=== PATIENT | male | born 1945 | race Caucasian/White ===

== ENCOUNTER 2025-02-23 13:20 | Outpatient (RCR) | payer OTHER, SELFPAY | END 2025-02-24 23:59 | disposition home or self-care (01) | LOC: PRC 13:20 | PROVIDERS: PCP Physician Assistant Medical; Visit Provider Physician Assistant Surgical ==

== ENCOUNTER 2025-02-25 12:01 | Outpatient (CLI) | payer OTHER, SELFPAY ==
[2025-02-25] MEDS: Levalbuterol HFA 15 GM INH 4 PUFF IH (11:05)
[2025-02-25] MEDS: Inhaler, Assist Device 1 EACH MC (11:05)
--- NOTE | 2025-03-01 21:19 | W.PFT ---
Date of service: 02/25/25 Time of Service: 09:55 Pulmonary Function Test Result Indications: CARNES Interpretation Spirometry: There is moderate airflow limitation. No significant bronchodilator response. Impression Moderate airflow obstruction Clinical Correlation therefore is recommended.
== END 2025-02-25 12:02 | disposition home or self-care (01) ==
PROVIDERS: PCP Physician Assistant Medical; Visit Provider Student in an Organized Health Care Education/Training Program
DX: R06.00 Dyspnea, unspecified (principal)
CPT/HCPCS: 94060

== ENCOUNTER 2025-03-04 00:52 | Outpatient (CLI) | payer OTHER, SELFPAY ==
--- NOTE | 2025-03-04 07:30 | DI.US_ITS ---
APPROVED REPORT EXAM: Comprehensive 2D, Doppler, and color-flow Echocardiogram Patient Location: Out-Patient Lead Radiation Therapist: Edwin Matute RDCS (AE) Indications: HTN, SOB Other Information Study Quality: Adequate Conclusion Concentric left ventricular hypertrophy. Ejection fraction is 60%. Wall motion is normal Dilated right ventricle. Normal right ventricular systolic function Severely enlarged right atrium. Moderately enlarged left atrium Aortic valve is sclerotic and trileaflet with mild regurgitation Thickened mitral leaflets. Mitral annular calcification. Moderate mitral regurgitation Normal tricuspid valve with moderate regurgitation. Estimated right ventricular systolic pressure is 72 mmHg Ascending aorta measures 3.7 cm Wall motion Left Ventricle The left ventricle is normal size. The left ventricular systolic function is normal. The left ventric ular ejection fraction is within the normal range. Moderate concentric left hypertrophy There is norm al LV segmental wall motion. There is no ventricular septal defect visualized. LVEF is 60%. Right Ventricle Right ventricle is moderately dilated. The right ventricular systolic function is normal. Atria Left atrium is moderately dilated. Right atrium is severely dilated. The interatrial septum is intact with no evidence for an atrial septal defect. Aortic Valve The aortic valve is sclerotic. Aortic valve is trileaflet. There is no aortic valvular stenosis. Mild aortic regurgitation. Mitral Valve Mitral valve leaflets are thickened. mitral annular calcification. No evidence of mitral valve stenos is. Moderate mitral regurgitation. Tricuspid Valve The tricuspid valve is normal in structure. There is no tricuspid valve stenosis. Moderate tricuspid regurgitation. The RVSP is 72.2mmHg. Pulmonic Valve The pulmonary valve is normal in structure. There is no pulmonic valvular stenosis. There is no pulmo haritha valvular regurgitation. Great Vessels The aortic root is normal in size. The ascending aorta is mildly dilated. The IVC is dilated. The IVC collapses <50% with inspiration. Pericardium There is no pericardial effusion. 2D Dimensions IVSD d PLAX 0.78 cm M: 0.6-1.2 Ao Root d 2.65 cm M: 3.1 - 3.7 LVPW d PLAX 0.78 cm M: 0.6 - 1.2 Ao Asc Diam d 3.70 cm M: 2.6 - 3.4 LVID d PLAX 4.39 cm M: 4.2 - 5.8 LVDs 3.00 cm M: 2.5 - 4.0 LV EF Teichholz 60.0 % FS 31.74 % LV EDV (Teich) 87.3 mL LV ESV (Teich) 34.9 mL Stroke Vol Index (Teich) 28.61 M-Mode TAPSE 1.01 cm (M/F) >1.7 Auto EF LV EDV A4C 79.0 mL LV EDV A2C 81.0 mL LV EDV BP 80.1 mL LV ESV A4C 31.8 mL LV ESV A2C 32.3 mL LV ESV BP 33.3 mL LVEF(%) A4C 59.8 % LVEF(%) A2C 60.1 % LVEF(%) BP 58.5 % LV SV A4C 47.3 ml LV SV A2C 48.7 ml LV SV BP 46.9 ml LV CO A4C 4.3 L/min LV CO A2C 3.9 L/min LV CO BP 4.1 L/min HR A4C 90.68 BPM HR A2C 79.83 BPM LV EDV Index (BP) LA Volume LA Length A4C 6.4 cm LA Length A2C 5.8 cm LA Area A4C s 24.88 cm2 LA Area A2C s 23.17 cm2 LA Vol A4C A-L 81.59 mL LA Vol A2C A-L 78.34 mL LA Vol Biplane A-L 84.1 mL LA Vol/BSA A4C A-L LA Vol/BSA A2C A-L LA Vol/BSA BP A-L 46.0 mL/m2 LA Vol A4C MOD 75.0 mL LA Vol A2C MOD 76.9 mL LA Vol BP MOD 79.1 mL RA Volume RA Area A4C 22.2 cm2 RA ESV A4C (A-L) 73.8mL RA Vol/BSA A4C A-L RA Length A4C 5.7 cm RA ESV A4C (MOD) 69.6mL LV Diastology MV E' medial 0.060 (>0.07 m/s) MV E Vmax 1.26 (0.4-1.3 m/s) MV E' lateral 0.094 (>0.1 m/s) Aortic Valve AoV Vmax 1.50 m/s LVOT Vmax 0.77 m/s AoV Peak Grad 21.0 mmHg LVOT Peak Grad 2.4 mmHg AoV Area (Vmax) 1.46 cm2 LVOT VTI 0.158 m AoV VTI 0.327 m LVOT Mean Grad 1.4 mmHg AoV Mean Dylan. 1.01 m/s LVOT SV 45.24 mL AoV Mean Grad 4.8 mmHg LVOT Diam s 1.90 cm AoV Area (VTI) 1.38 cm2 AV Regurg Peak Gr. 8.98 mmHg Velocity Ratio 0.51 AR Decel Blackford 1.3m/sec2 AR DT 2267 msec AR PHT 657 msec AR Vmax 2.87 m/s Pulmonary Valve PV Vmax 0.88 (0.5-1.5 m/s) PV Peak Grad 3.2 mmHg PV Mean Dylan 0.54 m/s PV Mean Grad 1.4 mmHg Tricuspid Valve RA Pressure 8.00 mmHg TR Vmax 4.00 m/s TR Peak Grad 64.1 mmHg RVSP (TR) 72.2 mmHg
== END 2025-03-04 01:12 ==
LOC: DI 00:52
PROVIDERS: PCP Physician Assistant Medical; Visit Provider Chiropractor
DX: R06.02 Shortness of breath (principal); I11.9 Hypertensive heart disease without heart failure; I51.7 Cardiomegaly
CPT/HCPCS: 93306

== ENCOUNTER 2025-03-15 13:16 | Outpatient (CLI) | payer OTHER, SELFPAY ==
--- NOTE | 2025-03-15 13:15 | RT.EKG_ITS ---
APPROVED REPORT Exam: Resting ECG Reason for Exam: follow up Patient Location: O HR:76 bpm ECG Measurements Heart Rate 76 AXIS NM [id number] P [id number] QRSd 99 QRS 42 QT 403 T -58 QTc 454 Conclusion Atrial fibrillation...V-rate 56- 87, irreg A-activity Ventricular premature complex...V complex w/ short R-R interval Borderline T abnormalities, inferior leads...T flat/neg, II III aVF
== END 2025-03-15 13:17 | disposition home or self-care (01) ==
PROVIDERS: PCP Physician Assistant Medical; Visit Provider Chiropractor
DX: I48.19 Other persistent atrial fibrillation (principal)
CPT/HCPCS: 93005; 93010

== ENCOUNTER 2025-03-26 13:14 | Outpatient (RCR) | payer OTHER, SELFPAY | END 2025-03-27 23:59 | disposition home or self-care (01) | LOC: PRC 13:14 | PROVIDERS: PCP Physician Assistant Medical; Visit Provider Physician Assistant Surgical | DX: J44.9 Chronic obstructive pulmonary disease, unspecified (principal); Z51.89 Encounter for other specified aftercare | CPT/HCPCS: 94626 ==

== ENCOUNTER 2025-04-26 13:54 | Outpatient (RCR) | payer OTHER, SELFPAY | END 2025-04-26 23:59 | disposition home or self-care (01) | LOC: PRC 13:54 | PROVIDERS: PCP Physician Assistant Medical; Visit Provider Internal Medicine Cardiovascular Disease | DX: I11.9 Hypertensive heart disease without heart failure (principal); I51.7 Cardiomegaly; Z51.89 Encounter for other specified aftercare | CPT/HCPCS: 94626 ==

== ENCOUNTER 2025-05-05 14:00 | Outpatient (RCR) | payer OTHER, SELFPAY | END 2025-05-27 23:59 | disposition home or self-care (01) | LOC: PRC 14:00 | PROVIDERS: PCP Physician Assistant Medical; Visit Provider Internal Medicine Pulmonary Disease | DX: J44.9 Chronic obstructive pulmonary disease, unspecified (principal); Z51.89 Encounter for other specified aftercare | CPT/HCPCS: 94626 ==